=== PATIENT | male | born 1960 | race Caucasian/White ===

== ENCOUNTER 2024-02-16 15:52 | Day surgery (SDC) | payer MEDICARE ==
[2024-02-16] MEDS ORDERED: BUPIVACAINE 0.5% VIAL IJ ONE (15:53)
[2024-02-16] MEDS ORDERED: Depo-Medrol 40 MG/ML IM ONE (15:53)
[2024-02-16] MEDS ORDERED: LIDOCAINE HCL 1% AMPUL 5 ML IJ ONE (15:53)
--- NOTE | 2024-02-16 19:16 | XRAY ---
Indication: Right knee injection Intraoperative fluoroscopy provided for 12 seconds. 2 digital spot images submitted for interpretation demonstrates needle tip projecting over right femur intercondylar notch. Small amount of contrast injected for needle tip placement. Correlate with intraoperative findings/report.
--- NOTE | 2024-02-17 08:37 | XRAY ---
12 seconds of fluoroscopy was used in surgery for a right intra-articular knee and pes anserine bursa injection.
== END 2024-02-16 18:17 | disposition home or self-care (01) ==
LOC: SDC-PAIN 15:52
PROVIDERS: ATTEND Psychiatry & Neurology Pain Medicine
DX: M17.11 Unilateral primary osteoarthritis, right knee (principal)
CPT/HCPCS: 20610; 73560; 77002; Q9966